=== PATIENT | female | born 1970 | race Caucasian/White ===

== ENCOUNTER 2017-10-01 18:37 | Emergency (ER) | payer SELFPAY ==
[~2017-10-01] VITALS: Ht 165.1 cm; Wt 109.0 kg
[2017-10-01] MEDS ORDERED: GLIP5 PO (18:53)
[2017-10-01] MEDS ORDERED: INSU100V SQ (18:53)
[2017-10-01 19:08] LABS: GLUCOSE,POINT OF CARE 131 MG/DL (70-110)
[2017-10-01 20:29] VITALS: BP 129/63
== END 2017-10-01 20:44 | disposition home or self-care (01) ==
LOC: EMS 18:39
DX: S76.012A Strain of muscle, fascia and tendon of left hip, initial encounter (principal); E11.9 Type 2 diabetes mellitus without complications; Z79.4 Long term (current) use of insulin; W01.0XXA Fall on same level from slipping, tripping and stumbling without subsequent striking against object, initial encounter; Y93.89 Activity, other specified; Y92.89 Other specified places as the place of occurrence of the external cause; Y99.8 Other external cause status
CPT/HCPCS: 73503; 82948; 99284